=== PATIENT | male | born 2000 | race Asian ===

== ENCOUNTER 2022-12-09 07:07 | Day surgery (SDC) | payer OTHER ==
[~2022-12-09] VITALS: Ht 170.2 cm; Wt 95.3 kg
[~2022-12-09 07:07] MED LIST: CLINDAMYCIN PHOS 600 MG/ D5W 50 ML PREMIX IV ONE
[2022-12-09] MEDS ORDERED: MIDAZOLAM HCL 2 MG/2 ML VIAL (VERSED) ONE (09:37)
[2022-12-09] MEDS ORDERED: LR 1,000 ML IV.SOLN IV ONE (09:37)
[2022-12-09] MEDS ORDERED: BALANCED SALT IRRIG SOLN 15 ML IO ONE (09:37)
[2022-12-09] MEDS ORDERED: BUPIVACAINE /PF 0.5% 30 ML VIAL ONE (09:37)
[2022-12-09] MEDS ORDERED: NS 1000 ML IV.SOLN IV ONE (09:37)
[2022-12-09] MEDS ORDERED: ROCURONIUM BROMIDE 10 MG/ML (ZEMURON) ONE (09:37)
[2022-12-09] MEDS ORDERED: SUCCINYLCHOLINE CHLORIDE 20 MG/ML(QUELICIN) ONE (09:37)
[2022-12-09] MEDS ORDERED: DEXAMETHASONE SOD PHOSPHATE 4 MG/ML VIAL ONE (09:37)
[2022-12-09] MEDS ORDERED: fentaNYL CITRATE/PF 100 MCG/2 ML AMP ONE (09:37)
[2022-12-09] MEDS ORDERED: NS IRRIG SOLN 1000 ML IR ONE (09:37)
[2022-12-09] MEDS ORDERED: PROPOFOL 200MG/ 20ML VIAL (DIPRIVAN) IV ONE (09:37)
[2022-12-09] MEDS ORDERED: SEVOFLURANE 15 MIN GAS INH ONE (09:37)
[2022-12-09] MEDS ORDERED: LIDOCAINE/EPI MPF 1%1:200000 30 ML VIAL ONE (09:37)
[2022-12-09] MEDS ORDERED: ONDANSETRON HCL 4 MG/2 ML VIAL ONE (09:37)
[2022-12-09] MEDS ORDERED: KETOROLAC TROMETHAMINE 30 MG VIAL ONE ×2 (09:37→13:04)
[2022-12-09] MEDS ORDERED: IBUPROFEN 600 MG TABLET PO ONE (12:00)
[2022-12-09] MEDS ORDERED: METOCLOPRAMIDE HCL 10 MG/2 ML VIAL IVP PRN (12:00)
[2022-12-09] MEDS ORDERED: HYDROmorphone 1 MG/ML INJ. CARTRIDGE IVP PRN (12:00)
[2022-12-09] MEDS ORDERED: KETOROLAC TROMETHAMINE 30 MG VIAL IVP PRN (12:00)
[2022-12-09] MEDS ORDERED: ONDANSETRON HCL 4 MG/2 ML VIAL IVP PRN ×2 (12:00→12:45)
[2022-12-09] MEDS ORDERED: HYDROcodone/ACETAMIN 5-325 MG TAB (NORCO/ VICODIN) PO PRN (12:45)
[2022-12-09] MEDS ORDERED: ACETAMINOPHEN 500 MG TABLET PO PRN (12:45)
[2022-12-09] MEDS ORDERED: ONDANSETRON 4 MG ODT TAB PO PRN (12:45)
[2022-12-09 15:06] VITALS: BP_SYST 122
== END 2022-12-09 15:05 | disposition home or self-care (01) ==
LOC: SDS 07:07 → EDSEX 09:00 → SDS 15:05
PROVIDERS: ATTEND Otolaryngology
DX: J34.2 Deviated nasal septum (principal); J34.3 Hypertrophy of nasal turbinates; G47.33 Obstructive sleep apnea (adult) (pediatric)
CPT/HCPCS: 42145; 36415; 88304; 88305; 87426; 30140; 30520; J3490 ×2; J1100; J1885; J3465; J2405; J2704; J0330; J3010; J7120; J7030